=== PATIENT | female | born 1935 | race Caucasian/White ===

== ENCOUNTER 2021-10-21 08:19 | Emergency (ER) | payer MEDICARE | END 2021-10-21 09:55 | LOC: JP.ED 08:19 | DX: S80.01XA Contusion of right knee, initial encounter (principal); E78.00 Pure hypercholesterolemia, unspecified; Z88.7 Allergy status to serum and vaccine; Z88.1 Allergy status to other antibiotic agents; W19.XXXA Unspecified fall, initial encounter | CPT/HCPCS: 73562-26-RT; 73562-RT; 99282; 99284-25 ==

== ENCOUNTER 2022-03-12 16:14 | Emergency (ER) | payer MEDICARE, BC ==
[2022-03-12] MEDS: Adenosine 6 MG/2 ML SDV IVPUSH ONE ×2 (16:38→19:09)
[2022-03-12] MEDS: Ketorolac 30 MG/ML SDV IVPUSH ONE (17:03)
[2022-03-12] MEDS: Metoprolol Tartrate 25 MG Tab PO ONE (17:31)
[2022-03-12] MEDS: Sodium Chloride 0.9% 1,000 ML IV SCH (18:44)
[2022-03-12] MEDS: Diltiazem 25 MG/5 ML SDV IVPUSH ONE (19:09)
[2022-03-12 19:18] LABS: TROPONIN I HIGH SENSITIVITY 262.9 pg/mL (<=60.3)
[2022-03-12] MEDS ORDERED: Glucagon,Human Recombinant 1 MG Vial IM PRN (19:25)
[2022-03-12] MEDS: Insulin Regular, Human 100 Units/ML 3 ML Vial IVPUSH ONE (19:40)
[2022-03-12] MEDS: Calcium Gluconate 10% 1 GM/10 ML SDV IVPUSH ONE (19:41)
[2022-03-12] MEDS: 50% Dextrose in Water 50 ML Syringe IVPUSH ONE (19:41)
[2022-03-12 22:08] LABS: TROPONIN I HIGH SENSITIVITY 270.8 pg/mL (<=60.3)
[2022-03-12] MEDS: Sodium Chloride 0.9% 10 ML Syringe FLUSH PRN (23:47)
[2022-03-12] MEDS: Dextrose 5%-0.9% NaCl 1,000 ML IV SCH (23:47)
[2022-03-13] MEDS: Furosemide 40 MG Tab PO ONE (07:31)
== END 2022-03-13 07:45 | disposition home or self-care (01) ==
LOC: JP.ED 16:14
DX: I49.5 Sick sinus syndrome (principal); N18.4 Chronic kidney disease, stage 4 (severe); D63.1 Anemia in chronic kidney disease; E87.5 Hyperkalemia; E87.1 Hypo-osmolality and hyponatremia; E78.00 Pure hypercholesterolemia, unspecified; Z88.7 Allergy status to serum and vaccine; Z88.8 Allergy status to other drugs, medicaments and biological substances; Z79.82 Long term (current) use of aspirin; Z79.899 Other long term (current) drug therapy
CPT/HCPCS: 36415; 71045; 80048; 81001; 82947; 83735; 84100; 84443; 84484; 85025; 93005; 96361; 96374; 96375; 99285; A9270; J0153; J0610; J1885; J3490; J7030; J1815-GY

== ENCOUNTER 2024-04-24 20:07 | Emergency (ER) | payer BC, MEDICARE ==
[2024-04-24] MEDS: Sodium Chloride 0.9% 1,000 ML IV SCH (20:30)
[2024-04-24 20:31] LABS: BASOPHILS PERCENT AUTO 0.3 % (0.1-1.3); EOSINOPHILS ABSOLUTE AUTO 0.17 K/uL (0.00-0.40); EOSINOPHILS PERCENT AUTO 2.7 % (0.0-5.4); HEMATOCRIT 34.5 % (34.3-46.0); HEMOGLOBIN 11.8 g/dL (11.2-15.5); IMMATURE GRAN PERCENT AUTO 0.3 % (0.0-0.7); LYMPHOCYTES PERCENT AUTO 14.5 % (11.4-47.7); MEAN CORPUSCULAR HEMOGLOBIN 34.4 pg (31.6-35.5); MEAN CORPUSCULAR HGB CONC 34.2 g/dL (31.6-35.5); MEAN CORPUSCULAR VOLUME 100.6 fL (81.4-99.0); MONOCYTES ABSOLUTE AUTO 0.55 K/uL (0.20-0.90); MONOCYTES PERCENT AUTO 8.9 % (3.3-12.6); NEUTROPHILS ABSOLUTE AUTO 4.55 K/uL (1.0-7.6); NEUTROPHILS PERCENT AUTO 73.3 % (40.0-78.1); PLATELET COUNT,PLT 175 K/uL (130-375); RED BLOOD CELL COUNT 3.43 M/uL (3.77-5.24); WHITE BLOOD CELL COUNT,WBC 6.2 K/uL (3.2-11.0)
[2024-04-24] MEDS: Adenosine 6 MG/2 ML SDV IVPUSH ONE (20:35)
[2024-04-24 20:37] LABS: BASOPHILS ABSOLUTE AUTO 0.02 K/uL (0.00-0.10); IMMATURE GRAN ABSOLUTE AUTO 0.02 K/uL (0.00-0.23)
[2024-04-24 20:53] LABS: CALCIUM 9.6 mg/dL (8.5-10.1); CREATININE 1.8 mg/dL (0.6-1.0); EST CRCL DRUG DOSING (CG) 19.83 mL/min; POTASSIUM,K 4.2 mmol/L (3.6-5.2); TROPONIN I HIGH SENSITIVITY 14.7 pg/mL (<=60.3)
[2024-04-24 20:54] LABS: ANION GAP 17.2 mmol/L (5.0-14.0)
== END 2024-04-25 00:14 ==
LOC: JP.ED 20:07
DX: I47.10 Supraventricular tachycardia, unspecified (principal); E78.00 Pure hypercholesterolemia, unspecified; Z90.49 Acquired absence of other specified parts of digestive tract; E21.3 Hyperparathyroidism, unspecified; Z79.890 Hormone replacement therapy; Z79.899 Other long term (current) drug therapy; Z79.82 Long term (current) use of aspirin; Z88.7 Allergy status to serum and vaccine
CPT/HCPCS: 36415; 71045; 80048; 84484; 85025; 85379; 93005; 93010; 96360; 99284; 99285; J7030; J0153

== ENCOUNTER 2024-04-25 11:06 | Emergency (ER) | payer MEDICARE ==
[~2024-04-25 11:06] MED LIST: Metoprolol Tartrate 25 MG Tab PO SCH
[2024-04-25] MEDS: Sodium Chloride 0.9% 10 ML Syringe FLUSH PRN (11:19)
[2024-04-25] MEDS: Metoprolol Tartrate 5 MG/5 ML SDV IVPUSH ONE ×2 (11:19→13:43)
[2024-04-25 11:22] LABS: BASOPHILS PERCENT AUTO 0.2 % (0.1-1.3); EOSINOPHILS ABSOLUTE AUTO 0.11 K/uL (0.00-0.40); EOSINOPHILS PERCENT AUTO 1.7 % (0.0-5.4); HEMATOCRIT 35.6 % (34.3-46.0); HEMOGLOBIN 12.4 g/dL (11.2-15.5); IMMATURE GRAN PERCENT AUTO 0.3 % (0.0-0.7); LYMPHOCYTES ABSOLUTE AUTO 0.89 K/uL (0.8-3.3); LYMPHOCYTES PERCENT AUTO 13.8 % (11.4-47.7); MEAN CORPUSCULAR HEMOGLOBIN 34.4 pg (31.6-35.5); MEAN CORPUSCULAR HGB CONC 34.8 g/dL (31.6-35.5); MEAN CORPUSCULAR VOLUME 98.9 fL (81.4-99.0); MONOCYTES ABSOLUTE AUTO 0.49 K/uL (0.20-0.90); MONOCYTES PERCENT AUTO 7.6 % (3.3-12.6); NEUTROPHILS ABSOLUTE AUTO 4.94 K/uL (1.0-7.6); NEUTROPHILS PERCENT AUTO 76.4 % (40.0-78.1); PLATELET COUNT,PLT 182 K/uL (130-375); WHITE BLOOD CELL COUNT,WBC 6.5 K/uL (3.2-11.0)
[2024-04-25 11:25] LABS: BASOPHILS ABSOLUTE AUTO 0.01 K/uL (0.00-0.10); IMMATURE GRAN ABSOLUTE AUTO 0.02 K/uL (0.00-0.23)
[2024-04-25 11:57] LABS: ALANINE AMINOTRANSFERASE,ALT 20 U/L (12-78); ALBUMIN 3.6 g/dL (3.4-5.0); ALKALINE PHOSPHATASE 87 U/L (46-116); ANION GAP 12.1 mmol/L (5.0-14.0); ASPARTATE AMNIOTRANSFERASE,AST 41 U/L (15-37); BILIRUBIN TOTAL 0.4 mg/dL (0.2-1.0); BLOOD UREA NITROGEN,BUN 19 mg/dL (7-18); CALCIUM 9.5 mg/dL (8.5-10.1); CARBON DIOXIDE,CO2 25 mmol/L (21-32); CHLORIDE,CL 103 mmol/L (100-108); CREATININE 1.5 mg/dL (0.6-1.0); EST CRCL DRUG DOSING (CG) 24.72 mL/min; ESTIMATED GFR 33 mL/min (>60); GLUCOSE RANDOM 184 mg/dL (74-106); POTASSIUM,K 4.2 mmol/L (3.6-5.2); PRO B-TYPE NATRIUR PEPT,BNPPRO 1265 pg/mL (5-450); PROTEIN TOTAL,TP 7.3 g/dL (6.4-8.2); SODIUM,NA 140 mmol/L (140-148)
[2024-04-25] MEDS: Furosemide 20 MG/2 ML VIAL IVPUSH ONE (13:51)
[2024-04-25] MEDS: Aspirin 81 MG Tab.Chew PO ONE (13:51)
[2024-04-25] MEDS: Acetaminophen 500 MG Tab PO ONE (14:02)
[2024-04-25 14:06] LABS: PROTHROMBIN TIME 10.4 sec (9.2-10.6); PTT,PARTIAL THROMBOPLSTIN TIME 26.4 sec (21.8-27.3)
[2024-04-25] MEDS: Heparin Sodium 5,000 Units/ML Vial IVPUSH ONE (14:06)
[2024-04-25] MEDS: Heparin Sodium/D5W 25,000 UNITS/500 ML BAG IV SCH (14:06)
[2024-04-25] MEDS ORDERED: Metoprolol Tartrate 25 MG Tab PO ONE ×2 (14:45→14:46)
== END 2024-04-25 16:08 ==
LOC: JP.ED 11:06
DX: I47.10 Supraventricular tachycardia, unspecified (principal); B37.2 Candidiasis of skin and nail; I51.7 Cardiomegaly; Z66 Do not resuscitate; R60.0 Localized edema; Z90.49 Acquired absence of other specified parts of digestive tract; Z79.899 Other long term (current) drug therapy; Z79.82 Long term (current) use of aspirin; Z88.7 Allergy status to serum and vaccine; Z88.8 Allergy status to other drugs, medicaments and biological substances
CPT/HCPCS: 36415; 71045; 80053; 83880; 84443; 84484; 85025; 85610; 85730; 93005; 96365; 96366; 96375; 99285; A9270; J1644; J1940; J3490

== ENCOUNTER 2024-08-04 08:08 | Emergency (ER) | payer MEDICARE ==
[2024-08-04] MEDS: Ondansetron 4 MG/2 ML SDV IVPUSH ONE (08:46)
[2024-08-04] MEDS: Sodium Chloride 0.9% 1,000 ML IV SCH (08:46)
[2024-08-04 08:49] LABS: BASOPHILS PERCENT AUTO 0.1 % (0.1-1.3); HEMATOCRIT 36.4 % (34.3-46.0); HEMOGLOBIN 12.4 g/dL (11.2-15.5); IMMATURE GRAN PERCENT AUTO 0.3 % (0.0-0.7); LYMPHOCYTES PERCENT AUTO 1.4 % (11.4-47.7); MEAN CORPUSCULAR HEMOGLOBIN 34.5 pg (31.6-35.5); MEAN CORPUSCULAR HGB CONC 34.1 g/dL (31.6-35.5); MEAN CORPUSCULAR VOLUME 101.4 fL (81.4-99.0); MONOCYTES ABSOLUTE AUTO 0.28 K/uL (0.20-0.90); MONOCYTES PERCENT AUTO 3.9 % (3.3-12.6); NEUTROPHILS ABSOLUTE AUTO 6.78 K/uL (1.0-7.6); NEUTROPHILS PERCENT AUTO 94.3 % (40.0-78.1); PLATELET COUNT,PLT 156 K/uL (130-375); RED BLOOD CELL COUNT 3.59 M/uL (3.77-5.24); WHITE BLOOD CELL COUNT,WBC 7.2 K/uL (3.2-11.0)
[2024-08-04 08:52] LABS: BASOPHILS ABSOLUTE AUTO 0.01 K/uL (0.00-0.10); IMMATURE GRAN ABSOLUTE AUTO 0.02 K/uL (0.00-0.23)
[2024-08-04 09:16] LABS: A/G RATIO 0.9 (1.2-2.2); ALANINE AMINOTRANSFERASE,ALT 20 U/L (12-78); ALBUMIN 3.7 g/dL (3.4-5.0); ALKALINE PHOSPHATASE 82 U/L (46-116); ASPARTATE AMNIOTRANSFERASE,AST 18 U/L (15-37); BILIRUBIN TOTAL 0.5 mg/dL (0.2-1.0); BLOOD UREA NITROGEN,BUN 29 mg/dL (7-18); CALCIUM 9.3 mg/dL (8.5-10.1); CARBON DIOXIDE,CO2 28 mmol/L (21-32); CHLORIDE,CL 98 mmol/L (100-108); CREATININE 1.9 mg/dL (0.6-1.0); EST CRCL DRUG DOSING (CG) 14.42 mL/min; ESTIMATED GFR 25 mL/min (>60); GLUCOSE RANDOM 182 mg/dL (74-106); POTASSIUM,K 4.9 mmol/L (3.6-5.2); PRO B-TYPE NATRIUR PEPT,BNPPRO 766 pg/mL (5-450); PROTEIN TOTAL,TP 7.7 g/dL (6.4-8.2); SODIUM,NA 137 mmol/L (140-148)
[2024-08-04 09:19] LABS: ANION GAP 15.9 mmol/L (5.0-14.0); TSH ULTRASENSITIVE 0.931 uIU/mL (0.358-3.740)
[2024-08-04 09:20] LABS: TROPONIN I HIGH SENSITIVITY 82.5 pg/mL (<=60.3)
[2024-08-04] MEDS: Metoprolol Tartrate 25 MG Tab PO ONE (10:41)
[2024-08-04] MEDS: Aspirin 81 MG Tab.Chew PO ONE (10:41)
[2024-08-04] MEDS: Furosemide 40 MG Tab PO ONE (10:41)
[2024-08-04] MEDS: Levothyroxine 25 MCG Tab PO ONE (10:44)
[2024-08-04] MEDS ORDERED: Levothyroxine 88 MCG Tab PO ONE (10:45)
[2024-08-04 11:13] LABS: APPEARANCE,URINE CLOUDY (CLEAR); BILIRUBIN,URINE NEGATIVE (NEGATIVE); COLOR,URINE YELLOW (YELLOW); GLUCOSE,URINE NEGATIVE (NEGATIVE); KETONES,URINE NEGATIVE (NEGATIVE); LEUKOCYTE ESTERASE,URINE TRACE (NEGATIVE); NITRITE,URINE NEGATIVE (NEGATIVE); OCCULT BLOOD,URINE NEGATIVE (NEGATIVE); PROTEIN,URINE TRACE mg/dL (NEGATIVE); UROBILINOGEN,URINE 0.2 EU/dL (0.2-1.0)
[2024-08-04 11:22] LABS: AMORPHOUS SEDIMENT,URINE NOT SEEN; BACTERIA,URINE MANY; EPITHELIAL CELLS,URINE MODERATE; MUCUS,URINE NOT SEEN; RBC,URINE 0-5 (0-5)
[2024-08-05] MEDS ORDERED: Levothyroxine 88 MCG Tab PO SCH (10:40)
== END 2024-08-04 14:21 ==
LOC: JP.ED 08:08
DX: I49.5 Sick sinus syndrome (principal); E78.00 Pure hypercholesterolemia, unspecified; Z88.7 Allergy status to serum and vaccine; Z88.8 Allergy status to other drugs, medicaments and biological substances; Z79.82 Long term (current) use of aspirin; Z79.899 Other long term (current) drug therapy; Z79.890 Hormone replacement therapy
CPT/HCPCS: 36415; 80053; 81001; 83735; 83880; 84443; 84484; 85025; 93005; 96361; 96374; 99285; A9270; J2405; J7030; 93010; 99284